=== PATIENT | male | born 1975 | race Caucasian/White ===

== ENCOUNTER 2020-08-24 16:40 | Emergency (ER) | payer OTHER ==
[~2020-08-24] VITALS: Ht 170.2 cm; Wt 54.4 kg
[2020-08-24 17:48] LABS: ABSOLUTE NEUTROPHILS 3.2 thou/uL (1.4-8.2); BASOPHILS 0.8 % (0.0-2.0); EOSINOPHILS 4.4 % (0.0-3.0); HEMATOCRIT 40.4 % (42.0-52.0); HEMOGLOBIN 13.3 gm/dL (14.0-18.0); LYMPHOCYTES 21.9 % (24.0-44.0); MCH 32.3 pg (26.0-34.0); MONOCYTES 8.3 % (1.0-8.0); PLATELET COUNT 187 thou/uL (150-400); POLYS 64.6 % (36.0-66.0); RBC 4.12 mil/uL (4.50-6.00); RDW 13.8 % (10.5-14.5)
[2020-08-24 17:59] LABS: ANION GAP 8 mmol/L (7-16); BUN 12 mg/dL (7-18); CALCIUM 8.7 mg/dL (8.5-10.1); CHLORIDE 104 mmol/L (98-107); CO2 26 mmol/L (21-32); CREATININE 0.8 mg/dL (0.7-1.3); GLUCOSE 108 mg/dL (74-106); POTASSIUM 4.1 mmol/L (3.5-5.1); SODIUM 138 mmol/L (136-145)
[2020-08-24 18:08] LABS: ALBUMIN 3.1 g/dL (3.4-5.0); SGOT 25 U/L (15-37); SGPT 33 U/L (30-65); TOTAL BILIRUBIN 0.1 mg/dL (0.2-1.0); TOTAL PROTEIN 6.5 g/dL (6.4-8.2); TROPONIN-I <0.06 ng/mL (<0.06)
[2020-08-24 18:26] LABS: URINE BILIRUBIN NEGATIVE (Negative); URINE BLOOD NEGATIVE (Negative); URINE CLARITY CLEAR; URINE COLOR YELLOW; URINE GLUCOSE-RANDOM* NEGATIVE (Negative); URINE KETONES NEGATIVE (Negative); URINE LEUKOCYTES-REFLEX NEGATIVE (Negative); URINE NITRITE-REFLEX NEGATIVE (Negative); URINE PROTEIN (DIPSTICK) NEGATIVE (Negative); URINE UROBILINOGEN 0.2 E.U./dl (0.2-1.0)
[2020-08-24 22:25] VITALS: BP 107/62
--- NOTE | 2020-08-26 07:25 | EKG ---
[place] [address] [facility] [place] [address] ELECTROCARDIOGRAM REPORT Name: NIKKI MERCHANT Room #: KEVIN Mejia#: [id number] Admission: 08/24/20 Attend Phys: Discharge: 08/24/20 Date of : 71 Report #: [id number] [facility] ED Test Date: 2020-08-24 Test Time: 17:07:16 Pat Name: NIKKI MERCHANT Department: Room: Gender: M Volunteer Coordinator: MIGUEL : 1975 Requested By: Ericka Amaya Order Number: [id number] MD: Desean Arteaga Measurements Intervals [place] Rate: 66 P: 83 WV: 177 QRS: 68 QRSD: 83 T: 75 QT: 410 QTc: 430 Interpretive Statements NSR, artifact J Point elev, probable normal early repol pattern No previous ECG available for comparison Electronically Signed On 08-26-2020 7:25:20 [employer] by Desean Arteaga [email or web address] <ELECTRONICALLY SIGNED> By: Desean Arteaga MD, [facility] 08/26/20 0725 1707 1707 Desean Arteaga MD, FACC /EPI
== END 2020-08-24 22:27 | disposition home or self-care (01) ==
LOC: ER 16:40
PROVIDERS: Physician Assistant
DX: R53.1 Weakness (principal)